=== PATIENT | female | born 1930 | race Caucasian/White ===

== ENCOUNTER 2016-02-24 14:41 | Outpatient (RCR) | payer MEDICARE | END 2016-03-23 | disposition home or self-care (01) | LOC: WCC 14:41 | DX: L97.813 Non-pressure chronic ulcer of other part of right lower leg with necrosis of muscle (principal); I87.2 Venous insufficiency (chronic) (peripheral); R60.0 Localized edema; L97.322 Non-pressure chronic ulcer of left ankle with fat layer exposed; Z96.652 Presence of left artificial knee joint; I25.10 Atherosclerotic heart disease of native coronary artery without angina pectoris; I10 Essential (primary) hypertension; I48.91 Unspecified atrial fibrillation; Z79.01 Long term (current) use of anticoagulants; Z79.02 Long term (current) use of antithrombotics/antiplatelets; Z79.82 Long term (current) use of aspirin | CPT/HCPCS: G0463 ×3 ==

== ENCOUNTER 2016-04-06 14:23 | Outpatient (RCR) | payer MEDICARE | END 2016-04-20 | disposition home or self-care (01) | LOC: WCC 14:23 | DX: L97.322 Non-pressure chronic ulcer of left ankle with fat layer exposed (principal); R60.0 Localized edema; I97.2 Postmastectomy lymphedema syndrome; L97.813 Non-pressure chronic ulcer of other part of right lower leg with necrosis of muscle; Z96.652 Presence of left artificial knee joint; I10 Essential (primary) hypertension; I51.9 Heart disease, unspecified; I48.91 Unspecified atrial fibrillation; Z79.82 Long term (current) use of aspirin; Z79.01 Long term (current) use of anticoagulants | CPT/HCPCS: G0463 ×2 ==

== ENCOUNTER 2016-04-27 14:30 | Outpatient (RCR) | payer MEDICARE | END 2016-05-21 | disposition home or self-care (01) | LOC: WCC 14:30 | DX: L97.322 Non-pressure chronic ulcer of left ankle with fat layer exposed (principal); R60.0 Localized edema; I87.2 Venous insufficiency (chronic) (peripheral); I51.9 Heart disease, unspecified; I10 Essential (primary) hypertension; I48.91 Unspecified atrial fibrillation; Z96.652 Presence of left artificial knee joint | CPT/HCPCS: G0463 ×2 ==